=== PATIENT | female | born 1965 | race African-American/Black ===

== ENCOUNTER 2018-01-26 18:37 | Emergency (ER) | payer MEDICAID ==
[~2018-01-26] VITALS: Ht 167.6 cm; Wt 70.0 kg
[~2018-01-26 18:37] MED LIST: BACL-141 PO; GABA-531 PO; INSLIS SUBCUT; INSU100I24 SQ; IPRA4AER INH; LISI-186 PO; LORA1TAB PO; LURA120T PO; METO-293 PO; METO-396 PO; MONT10TA21 PO; WARF7.5T22 PO; ZOLP12.52 PO; ZONI100C45 PO
[2018-01-26] MEDS ORDERED: SODIUM CHLORIDE 0.9% 1,000 ML IV ONE (19:15)
[2018-01-26] MEDS ORDERED: ONDANSETRON HCL 4MG/2ML VIAL IV STA (19:15)
[2018-01-26] MEDS ORDERED: MORPHINE SULFATE 4 MG/ML CPJ (NOT FOR IM USE) IV STA (19:15)
[2018-01-26] MEDS ORDERED: DIPHENHYDRAMINE 50MG/ML VIAL IV ONE ×2 (20:00→21:45)
[2018-01-26 20:56] LABS: BASOPHILS % 0.2 % (0.0-2.0); EOSINOPHILS % 0.6 % (0.0-5.0); HEMATOCRIT. 33.3 % (36.0-48.0); LYMPHOCYTES % 15.5 % (20.0-50.0); MEAN CORPUSCULAR HEMOGLOBIN 27.1 pg (28.0-32.0); MEAN CORPUSCULAR VOLUME 82.2 fL (81.0-99.0); MONOCYTES % 5.2 % (2.0-8.0); NEUTROPHILS % 78.5 % (40.0-76.0); PLATELET 266 x1000/uL (130-400); RED BLOOD CELL COUNT 4.05 mill/uL (4.2-5.4); RED CELL DISTRIBUTION WIDTH 15.4 % (11.6-14.6)
[2018-01-26 21:01] LABS: CHLORIDE 102 mEq/L (98-107)
[2018-01-26 21:04] LABS: INR 2.7; PROTHROMBIN TIME 26.5 sec (9.1-11.1)
[2018-01-26] MEDS ORDERED: MORPHINE SULFATE 4 MG/ML CPJ (NOT FOR IM USE) IV ONE (21:45)
[2018-01-26 23:04] VITALS: BP 114/66
== END 2018-01-27 00:34 | disposition home or self-care (01) ==
LOC: ER 19:37
DX: S39.012A Strain of muscle, fascia and tendon of lower back, initial encounter (principal); R42 Dizziness and giddiness; J44.9 Chronic obstructive pulmonary disease, unspecified; E11.9 Type 2 diabetes mellitus without complications; I10 Essential (primary) hypertension; F32.9 Major depressive disorder, single episode, unspecified; Z79.899 Other long term (current) drug therapy; Z88.6 Allergy status to analgesic agent; Z88.8 Allergy status to other drugs, medicaments and biological substances; Z88.5 Allergy status to narcotic agent; W19.XXXA Unspecified fall, initial encounter; Y93.89 Activity, other specified; Y92.89 Other specified places as the place of occurrence of the external cause; Y99.8 Other external cause status
CPT/HCPCS: 36415; 70450; 71045; 72100; 80053; 84484; 85025; 85610; 93005; 96361; 96374; 96375; 96376; 99285; J1200; J2270; J2405; J7030; Z7610

== ENCOUNTER 2018-04-16 02:49 | Inpatient (IN) | payer MEDICAID ==
[~2018-04-16] VITALS: Ht 167.6 cm; Wt 98.9 kg
[~2018-04-16 02:49] MED LIST changes: +CHOL20004 PO; +CYCL10TA7 PO; +DIAZ5TAB4 PO; +DOCU-155 PO; +ESCI10TA PO; +LIP40 PO; -LISI-186 PO; -METO-293 PO; +ONDA4TAB11 PO; +OXYB5SYR2 PO; -ZONI100C45 PO
[2018-04-16] MEDS ORDERED: MORPHINE SULFATE 4 MG/ML CPJ (NOT FOR IM USE) IV STA (03:21)
[2018-04-16] MEDS ORDERED: ONDANSETRON HCL 4MG/2ML INJ IV STA (03:21)
[2018-04-16] MEDS ORDERED: ASPIRIN 81MG TABLET PO ONE (03:30)
[2018-04-16 04:01] LABS: BASOPHILS % 0.8 % (0.0-2.0); EOSINOPHILS % 1.2 % (0.0-5.0); HEMATOCRIT. 37.4 % (36.0-48.0); HEMOGLOBIN. 11.9 g/dL (12.0-16.0); LYMPHOCYTES % 18.2 % (20.0-50.0); MEAN CORPUSCULAR HEMOGLOBIN 26.4 pg (28.0-32.0); MEAN CORPUSCULAR VOLUME 82.5 fL (81.0-99.0); MEAN PLATELET VOLUME 7.4 fl (7.4-10.4); MONOCYTES % 4.4 % (2.0-8.0); NEUTROPHILS % 75.4 % (40.0-76.0); PLATELET 427 x1000/uL (130-400); RED BLOOD CELL COUNT 4.53 mill/uL (4.2-5.4); RED CELL DISTRIBUTION WIDTH 14.8 % (11.6-14.6)
[2018-04-16 04:09] LABS: INR 2.7; PROTHROMBIN TIME 26.5 sec (9.1-11.1)
[2018-04-16 04:10] LABS: CHLORIDE 104 mEq/L (98-107)
[2018-04-16] MEDS ORDERED: DIPHENHYDRAMINE 50MG/ML VIAL IV ONE (04:30)
[2018-04-16 05:37] LABS: *AMPHETAMINES SCREEN URINE NEGATIVE (NEGATIVE); *BARBITURATES SCREEN URINE NEGATIVE (NEGATIVE); *BENZODIAZEPINES SCREEN URINE PRESUMTIVE POSITIVE (NEGATIVE); *COCAINE SCREEN URINE NEGATIVE (NEGATIVE); CANNABINOID URINE SCREEN NEGATIVE (NEGATIVE); METHADONE URINE SCREEN NEGATIVE (NEGATIVE); OPIATES URINE SCREEN NEGATIVE (NEGATIVE); PHENCYCLIDINE URINE SCREEN NEGATIVE (NEGATIVE)
[2018-04-16 15:15] VITALS: BP 125/75
[2018-04-16] MEDS ORDERED: PREDNISONE 20MG TABLET PO SCH (15:45)
[2018-04-16 15:47] VITALS: BP 125/75
== END 2018-04-16 17:22 | disposition home or self-care (01) | DRG 203 ==
LOC: ER 03:14 → 7WST 04:51 → EDBEDREQ 04:58 → EDBEDREQTM 04:58 → ENRESERV 12:40
PROVIDERS: ADMIT Emergency Medicine; ATTEND Emergency Medicine
DX: M94.0 Chondrocostal junction syndrome [Tietze] (principal); D68.59 Other primary thrombophilia; E11.9 Type 2 diabetes mellitus without complications; E66.01 Morbid (severe) obesity due to excess calories; E78.00 Pure hypercholesterolemia, unspecified; F31.9 Bipolar disorder, unspecified; G89.4 Chronic pain syndrome; F41.9 Anxiety disorder, unspecified; I10 Essential (primary) hypertension; J44.9 Chronic obstructive pulmonary disease, unspecified; K21.9 Gastro-esophageal reflux disease without esophagitis; M79.7 Fibromyalgia; Z79.01 Long term (current) use of anticoagulants; Z79.4 Long term (current) use of insulin; Z85.3 Personal history of malignant neoplasm of breast; Z86.711 Personal history of pulmonary embolism; Z86.73 Personal history of transient ischemic attack (TIA), and cerebral infarction without residual deficits; Z88.6 Allergy status to analgesic agent; Z90.710 Acquired absence of both cervix and uterus; Z68.35 Body mass index [BMI] 35.0-35.9, adult; Z88.5 Allergy status to narcotic agent; Z88.8 Allergy status to other drugs, medicaments and biological substances; Z91.041 Radiographic dye allergy status; Z91.048 Other nonmedicinal substance allergy status; Z79.899 Other long term (current) drug therapy
CPT/HCPCS: 36415; 71045; 78582; 80305; 82962; 83880; 84484; 93005; 96374; 96375; 99285; A9558; J1200; J2270; J2405; J7030; J7512

== ENCOUNTER 2018-09-21 01:43 | Emergency (ER) | payer MEDICAID ==
[~2018-09-21] VITALS: Ht 167.6 cm; Wt 91.0 kg
[2018-09-21] MEDS ORDERED: ONDANSETRON HCL 4MG/2ML INJ IV STA (03:43)
[2018-09-21] MEDS ORDERED: MORPHINE SULFATE 4 MG/ML CPJ (NOT FOR IM USE) IV STA (03:43)
[2018-09-21] MEDS ORDERED: DIPHENHYDRAMINE 50MG/ML VIAL IV ONE (03:45)
[2018-09-21 04:25] LABS: BASOPHILS % 0.4 % (0.0-2.0); EOSINOPHILS % 1.1 % (0.0-5.0); HEMATOCRIT. 36.1 % (36.0-48.0); HEMOGLOBIN. 11.4 g/dL (12.0-16.0); LYMPHOCYTES % 21.1 % (20.0-50.0); MEAN CORPUSCULAR VOLUME 75.5 fL (81.0-99.0); MEAN PLATELET VOLUME 7.4 fl (7.4-10.4); MONOCYTES % 5.3 % (2.0-8.0); NEUTROPHILS % 72.1 % (40.0-76.0); PLATELET 359 x1000/uL (130-400); RED BLOOD CELL COUNT 4.78 mill/uL (4.2-5.4)
[2018-09-21 04:31] LABS: CHLORIDE 106 mEq/L (98-107)
[2018-09-21 04:36] LABS: INR 2.1; PARTIAL THROMBOPLASTIN TIME 36.7 sec (23.4-31.0); PROTHROMBIN TIME 20.7 sec (9.6-11.0)
[2018-09-21 06:00] VITALS: BP 129/89
== END 2018-09-21 06:00 | disposition home or self-care (01) ==
LOC: ER 01:43
DX: G89.29 Other chronic pain (principal); R07.9 Chest pain, unspecified; E11.9 Type 2 diabetes mellitus without complications; I10 Essential (primary) hypertension; I69.354 Hemiplegia and hemiparesis following cerebral infarction affecting left non-dominant side; Z79.4 Long term (current) use of insulin; Z88.5 Allergy status to narcotic agent; Z88.6 Allergy status to analgesic agent; Z88.8 Allergy status to other drugs, medicaments and biological substances; Z79.01 Long term (current) use of anticoagulants; Z86.711 Personal history of pulmonary embolism; Z90.710 Acquired absence of both cervix and uterus
CPT/HCPCS: 36415; 71045; 80053; 84484; 85025; 85610; 85730; 93005; 96374; 96375; 99284; J1200; J2270; J2405; Z7610

== ENCOUNTER 2020-03-15 20:21 | Inpatient (IN) | payer MEDICAID ==
[~2020-03-15] VITALS: Ht 167.6 cm; Wt 98.9 kg
[2020-03-15] MEDS ORDERED: ONDANSETRON HCL 4MG/2ML INJ IV STA (20:42)
[2020-03-15] MEDS ORDERED: SODIUM CHLORIDE 0.9% 1,000 ML IV ONE (20:45)
[2020-03-15] MEDS ORDERED: LORAZEPAM 2MG/ML CPJ IV ONE (21:00)
[2020-03-15 21:59] LABS: BASOPHILS % 0.2 % (0.0-2.0); EOSINOPHILS % 0.2 % (0.0-5.0); HEMOGLOBIN. 12.1 g/dL (12.0-16.0); LYMPHOCYTES % 11.8 % (20.0-50.0); MEAN CORPUSCULAR HEMOGLOBIN 27.5 pg (28.0-32.0); MEAN CORPUSCULAR VOLUME 83.9 fL (81.0-99.0); MEAN PLATELET VOLUME 7.4 fl (7.4-10.4); MONOCYTES % 4.3 % (2.0-8.0); NEUTROPHILS % 83.5 % (40.0-76.0); PLATELET 248 x1000/uL (130-400); RED BLOOD CELL COUNT 4.41 mill/uL (4.2-5.4); RED CELL DISTRIBUTION WIDTH 14.8 % (11.6-14.6)
[2020-03-15 22:00] LABS: CHLORIDE 106 mEq/L (98-107)
[2020-03-15 22:03] LABS: INR 2.9; PROTHROMBIN TIME 29.3 sec (9.6-11.0)
[2020-03-15 22:08] LABS: HCG SCREEN NEGATIVE
[2020-03-15 23:59] LABS: CLARITY URINE CLEAR (CLEAR); COLOR URINE YELLOW (YELLOW); KETONES URINE NEGATIVE (NEGATIVE); LEUKOCYTE ESTERASE URINE TRACE (NEGATIVE); NITRITE URINE NEGATIVE (NEGATIVE); OCCULT BLOOD URINE NEGATIVE (NEGATIVE); PH URINE 5.5 (4.5-8.0); PROTEIN URINE NEGATIVE (NEGATIVE); SPECIFIC GRAVITY URINE 1.021 (1.005-1.030)
[2020-03-16 00:17] LABS: *AMPHETAMINES SCREEN URINE NEGATIVE (NEGATIVE)
[2020-03-16 00:18] LABS: *BARBITURATES SCREEN URINE NEGATIVE (NEGATIVE); *BENZODIAZEPINES SCREEN URINE NEGATIVE (NEGATIVE); *COCAINE SCREEN URINE NEGATIVE (NEGATIVE); METHADONE URINE SCREEN NEGATIVE (NEGATIVE); OPIATES URINE SCREEN NEGATIVE (NEGATIVE)
[2020-03-16 00:19] LABS: CANNABINOID URINE SCREEN PRESUMTIVE POSITIVE (NEGATIVE); PHENCYCLIDINE URINE SCREEN NEGATIVE (NEGATIVE)
[2020-03-16 04:51] VITALS: BP 123/68
[2020-03-16 05:02] VITALS: BP 123/68
[2020-03-16] MEDS ORDERED: WARF-53 MT (05:43)
[2020-03-16] MEDS ORDERED: INSU100V37 SQ ×2 (05:48)
[2020-03-16] MEDS ORDERED: ACETAMINOPHEN 650MG/20.3ML UDC PO PRN (06:15)
[2020-03-16] MEDS ORDERED: ONDANSETRON HCL 4MG/2ML INJ IV PRN (06:15)
[2020-03-16] MEDS ORDERED: DEXTROSE 50% WATER 50ML SYRINGE IV PRN (06:15)
[2020-03-16] MEDS ORDERED: MECLIZINE 12.5MG TABLET PO PRN (06:15)
[2020-03-16] MEDS ORDERED: SODIUM CHLORIDE 0.9% 1,000 ML IV ONE (06:15)
[2020-03-16] MEDS: BLOOD SUGAR DIAGNOSTIC STRIP TEST SCH ×2 (06:58→12:14)
[2020-03-16] MEDS: INSULIN LISPRO 100 UNITS/ML SUBCUT SCH ×2 (07:41→12:36)
[2020-03-16 08:56] LABS: BASOPHILS % 0.1 % (0.0-2.0); EOSINOPHILS % 0.5 % (0.0-5.0); HEMATOCRIT. 36.7 % (36.0-48.0); LYMPHOCYTES % 18.6 % (20.0-50.0); MEAN CORPUSCULAR HEMOGLOBIN 27.4 pg (28.0-32.0); MEAN CORPUSCULAR VOLUME 83.7 fL (81.0-99.0); MEAN PLATELET VOLUME 7.3 fl (7.4-10.4); MONOCYTES % 4.6 % (2.0-8.0); NEUTROPHILS % 76.2 % (40.0-76.0); PLATELET 298 x1000/uL (130-400); RED BLOOD CELL COUNT 4.39 mill/uL (4.2-5.4); RED CELL DISTRIBUTION WIDTH 15.1 % (11.6-14.6)
[2020-03-16] MEDS ORDERED: HEPARIN 5000 UNITS/ML VIAL SUBCUT SCH (09:00)
[2020-03-16 09:11] LABS: CHLORIDE 105 mEq/L (98-107)
[2020-03-16 12:00] VITALS: BP 154/81
[2020-03-16] MEDS ORDERED: INFLUENZA VACCINE 05/PF 0.5 ML VIAL IM ONE (12:00)
[2020-03-16 14:50] VITALS: BP 154/81
[2020-03-16] MEDS ORDERED: WARFARIN SODIUM 4MG TABLET PO NR (18:00)
== END 2020-03-16 16:20 | disposition home or self-care (01) | DRG 812 ==
LOC: ER 20:21 → 6WST 03-16 02:26 → ENRESERV 03-16 03:06
PROVIDERS: ADMIT Internal Medicine; ATTEND Internal Medicine
DX: T40.7X1A Poisoning by cannabis (derivatives), accidental (unintentional), initial encounter (principal); D68.59 Other primary thrombophilia; E11.65 Type 2 diabetes mellitus with hyperglycemia; E87.6 Hypokalemia; F12.929 Cannabis use, unspecified with intoxication, unspecified; F20.9 Schizophrenia, unspecified; G92 Toxic encephalopathy; I10 Essential (primary) hypertension; I69.354 Hemiplegia and hemiparesis following cerebral infarction affecting left non-dominant side; M79.7 Fibromyalgia; Z79.01 Long term (current) use of anticoagulants; Z79.4 Long term (current) use of insulin; Z79.899 Other long term (current) drug therapy; Z85.3 Personal history of malignant neoplasm of breast; Z88.9 Allergy status to unspecified drugs, medicaments and biological substances; Z90.710 Acquired absence of both cervix and uterus; Y92.89 Other specified places as the place of occurrence of the external cause; Z92.21 Personal history of antineoplastic chemotherapy; Z88.5 Allergy status to narcotic agent; Z88.8 Allergy status to other drugs, medicaments and biological substances; Z91.048 Other nonmedicinal substance allergy status
CPT/HCPCS: 36415; 70544; 70553; 80053; 80305; 81003; 82962; 83036; 83735; 83880; 84484; 84703; 85025; 93005; 93306; 97162; 99285; J1815; J2060; J2405; J7030